=== PATIENT | female | born 1980 | race Two or more races ===

== ENCOUNTER 2017-02-22 10:00 | Emergency (ER) | payer OTHER ==
[~2017-02-22] VITALS: Ht 167.6 cm; Wt 79.4 kg
[~2017-02-22 10:00] MED LIST: CARAFATE1 G PO; OMEPRAZOLE40 MG PO; PEPCID20 MG PO; PRILOSEC10 MG PO; ZANTAC150 M3 PO; ZOFRAN4 MG PO
== END 2017-02-22 11:04 | disposition home or self-care (01) ==
LOC: ER 10:00
DX: T26.82XA Corrosions of other specified parts of left eye and adnexa, initial encounter (principal); T26.81XA Corrosions of other specified parts of right eye and adnexa, initial encounter; Y93.89 Activity, other specified; Y92.89 Other specified places as the place of occurrence of the external cause; Y99.8 Other external cause status

== ENCOUNTER 2017-04-27 08:30 | Outpatient (CLI) | payer OTHER | END 2017-04-27 08:40 | disposition home or self-care (01) | LOC: SONOGRAMA 08:30 | DX: R10.2 Pelvic and perineal pain (principal) ==

== ENCOUNTER 2017-06-11 11:48 | Outpatient (CLI) | payer OTHER | END 2017-06-11 15:23 | disposition home or self-care (01) | LOC: TOM 11:48 | DX: N28.89 Other specified disorders of kidney and ureter (principal) ==

== ENCOUNTER → 2017-12-13 | Emergency (ER) | payer OTHER ==
[~2017-12-13] VITALS: Ht 167.6 cm; Wt 84.8 kg
[~2017-12-13] MED LIST changes: +MECLIZINE HCL25 MG PO; +METOCLOPRAMIDE10 MG PO
== END | disposition home or self-care (01) ==
LOC: ER 08:45
DX: H81.13 Benign paroxysmal vertigo, bilateral (principal)

== ENCOUNTER 2019-04-12 09:15 | Outpatient (CLI) | payer OTHER | END 2019-04-12 11:43 | disposition home or self-care (01) | LOC: SONOGRAMA 09:15 → MAMO-SONO 09:15 | DX: R10.2 Pelvic and perineal pain (principal) ==

== ENCOUNTER 2019-04-22 11:42 | Emergency (ER) | payer OTHER ==
[~2019-04-22] VITALS: Ht 167.6 cm; Wt 83.0 kg
[2019-04-22] MEDS ORDERED: PROTONIX20 MG (12:41)
== END 2019-04-22 16:24 | disposition home or self-care (01) ==
LOC: ER 11:42
DX: J06.9 Acute upper respiratory infection, unspecified (principal)

== ENCOUNTER 2019-11-18 15:44 | Outpatient (CLI) | payer OTHER ==
[~2019-11-18 15:44] MED LIST changes: +PROTONIX20 MG
== END 2019-11-18 15:45 | disposition home or self-care (01) ==
LOC: PPH VACUNA 15:44 → LAB 15:44
DX: Z23 Encounter for immunization (principal)

== ENCOUNTER 2020-01-20 15:42 | Outpatient (CLI) | payer OTHER | END 2020-01-20 15:43 | disposition home or self-care (01) | LOC: LAB 15:42 | PROVIDERS: ATTEND General Practice | DX: R05 Cough (principal); Z00.00 Encounter for general adult medical examination without abnormal findings ==

== ENCOUNTER 2020-02-23 08:00 | Outpatient (CLI) | payer OTHER | END 2020-02-23 18:00 | disposition home or self-care (01) | LOC: PPH VACUNA 08:00 | DX: Z23 Encounter for immunization (principal) ==

== ENCOUNTER 2020-03-04 15:23 | Outpatient (CLI) | payer OTHER | END 2020-03-04 15:33 | disposition HB | LOC: MAMO-SONO 15:23 | DX: Z12.31 Encounter for screening mammogram for malignant neoplasm of breast (principal); N64.59 Other signs and symptoms in breast ==

== ENCOUNTER 2020-11-25 08:00 | Outpatient (CLI) | payer OTHER | END 2020-11-25 08:30 | disposition home or self-care (01) | LOC: PPH VACUNA 08:00 | PROVIDERS: ATTEND Emergency Medicine Pediatric Emergency Medicine | DX: Z23 Encounter for immunization (principal) ==

== ENCOUNTER → 2020-12-24 | Outpatient (CLI) | payer OTHER | END | disposition home or self-care (01) | LOC: PPH VACUNA 08:00 | PROVIDERS: ATTEND Emergency Medicine Pediatric Emergency Medicine | DX: Z23 Encounter for immunization (principal) ==

== ENCOUNTER 2021-08-01 14:40 | Outpatient (CLI) | payer OTHER | END 2021-08-01 14:54 | disposition home or self-care (01) | LOC: MAMO-SONO 14:40 | DX: Z12.31 Encounter for screening mammogram for malignant neoplasm of breast (principal) ==

== ENCOUNTER → 2021-11-09 | Outpatient (CLI) | payer OTHER | END | disposition home or self-care (01) | LOC: PPH VACUNA 08:00 | PROVIDERS: ATTEND Emergency Medicine Pediatric Emergency Medicine | DX: Z23 Encounter for immunization (principal) ==

== ENCOUNTER 2022-07-18 15:14 | Outpatient (CLI) | payer OTHER | END 2022-07-18 15:20 | disposition home or self-care (01) | LOC: SONOGRAMA 15:14 | DX: R10.2 Pelvic and perineal pain (principal) ==

== ENCOUNTER 2022-08-29 06:41 | Emergency (ER) | payer OTHER ==
[~2022-08-29] VITALS: Ht 167.6 cm; Wt 82.6 kg
[2022-08-29] MEDS ORDERED: CARAFATE1 GM PO (07:26)
== END 2022-08-29 18:43 | disposition home or self-care (01) ==
LOC: ER 06:41
DX: R42 Dizziness and giddiness (principal)

== ENCOUNTER → 2022-10-26 | Outpatient (CLI) | payer OTHER ==
[~2022-10-26] MED LIST changes: +CARAFATE1 GM PO
== END | disposition home or self-care (01) ==
LOC: PPH VACUNA
PROVIDERS: ATTEND Emergency Medicine Pediatric Emergency Medicine
DX: Z23 Encounter for immunization (principal)

== ENCOUNTER 2022-10-31 15:16 | Outpatient (CLI) | payer OTHER | END 2022-10-31 15:23 | disposition home or self-care (01) | LOC: MAMO-SONO 15:16 | DX: Z12.31 Encounter for screening mammogram for malignant neoplasm of breast (principal) ==

== ENCOUNTER 2023-03-02 08:56 | Emergency (ER) | payer OTHER ==
[~2023-03-02] VITALS: Ht 162.6 cm; Wt 72.6 kg
[2023-03-02 09:54] LABS: HEMATOCRIT 38.9 % (36.0-45.00); HEMOGLOBIN 12.6 g/dL (12.0-15.00); MEAN CELL VOLUME 75.8 fL (80.00-100.00); MEAN CORPUSCULAR HEMOGLOBIN 24.6 pg (27.00-32.0); MEAN CORPUSCULAR HGB CONC 32.4 g/dl (32.0-36.0); PLATELET COUNT 195 K/uL (150-450); RED BLOOD COUNT 5.13 M/uL (4.00-6.00)
[2023-03-02 10:14] LABS: CALCIUM 8.5 mg/dL (8.5-10.1); CREATININE SERUM 0.62 mg/dL (0.55-1.02); GFR 105.06; POTASSIUM 3.71 mEq/L (3.5-5.1)
== END 2023-03-02 12:13 | disposition home or self-care (01) ==
LOC: ER 08:57
PROVIDERS: Emergency Medicine
DX: K21.9 Gastro-esophageal reflux disease without esophagitis (principal); Z88.0 Allergy status to penicillin

== ENCOUNTER 2023-05-14 15:17 | Outpatient (CLI) | payer OTHER | END 2023-05-14 15:24 | disposition home or self-care (01) | LOC: RAD 15:17 | DX: R31.9 Hematuria, unspecified (principal); Z71.2 Person consulting for explanation of examination or test findings; Z68.30 Body mass index [BMI] 30.0-30.9, adult ==

== ENCOUNTER 2023-06-08 07:10 | Outpatient (CLI) | payer OTHER | END 2023-06-08 07:15 | disposition home or self-care (01) | LOC: TOM 07:10 | PROVIDERS: ATTEND Urology | DX: R31.21 Asymptomatic microscopic hematuria (principal) ==

== ENCOUNTER 2023-09-13 15:08 | Outpatient (CLI) | payer OTHER | END 2023-09-13 15:15 | disposition home or self-care (01) | LOC: RAD 15:08 | DX: M54.50 Low back pain, unspecified (principal) ==

== ENCOUNTER 2024-05-15 14:26 | Outpatient (CLI) | payer OTHER | END 2024-05-15 14:35 | disposition home or self-care (01) | LOC: MAMO-SONO 14:26 | DX: M54.2 Cervicalgia (principal); Z12.31 Encounter for screening mammogram for malignant neoplasm of breast ==

== ENCOUNTER 2024-05-28 14:19 | Outpatient (CLI) | payer OTHER | END 2024-05-28 14:22 | disposition home or self-care (01) | LOC: SONOGRAMA 14:19 | PROVIDERS: ATTEND General Practice | DX: R31.9 Hematuria, unspecified (principal) ==

== ENCOUNTER 2024-08-20 11:55 | Outpatient (CLI) | payer OTHER | END 2024-08-20 12:05 | disposition home or self-care (01) | LOC: PPH VACUNA 11:55 | PROVIDERS: ATTEND Emergency Medicine Pediatric Emergency Medicine | DX: Z23 Encounter for immunization (principal) ==

== ENCOUNTER 2024-10-16 14:16 | Outpatient (CLI) | payer OTHER | END 2024-10-16 14:29 | disposition home or self-care (01) | LOC: RAD 14:16 | PROVIDERS: ATTEND General Practice | DX: G56.01 Carpal tunnel syndrome, right upper limb (principal); G56.02 Carpal tunnel syndrome, left upper limb; M53.3 Sacrococcygeal disorders, not elsewhere classified ==